=== PATIENT | male | born 1970 | race Caucasian/White ===

== ENCOUNTER 2022-07-30 21:06 | Emergency (ER) | payer MEDICAID, OTHER ==
[~2022-07-30] VITALS: Ht 175.3 cm; Wt 65.9 kg
[2022-07-30] MEDS ORDERED: KETOROLAC TROMETHAMINE 30 MG/ML VIAL IM ONE (21:30)
[2022-07-30] MEDS ORDERED: ACETAMINOPHEN 500 MG TABLET PO ONE (21:30)
[2022-07-30] MEDS ORDERED: ONDANSETRON HCL 4 MG TABLET PO ONE (21:30)
[2022-07-30 21:37] LABS: BASOPHILS % (AUTO) 0.4 % (0.0-2.0); EOSINOPHILS % (AUTO) 0.6 % (1.0-6.0); HEMATOCRIT 36.3 % (41-53); LYMPHOCYTES # (AUTO) 1.5 K/uL (1.0-4.8); LYMPHOCYTES % (AUTO) 15.6 % (22.0-44.0); MEAN CORPUSCULAR HEMOGLOBIN 21.5 pg (26.0-34.0); MEAN CORPUSCULAR HGB CONC 30.4 G/dL (31.0-37.0); MEAN CORPUSCULAR VOLUME 71 fL (80-100); MONOCYTES # (AUTO) 0.7 K/uL (0.1-1.0); MONOCYTES % (AUTO) 7.3 % (2.0-9.0); NEUTROPHILS # (AUTO) 7.5 K/uL (1.8-7.7); NEUTROPHILS % (AUTO) 76.1 % (40.0-70.0); PLATELET COUNT (AUTO) 371 K/uL (150-450); RED BLOOD CELL COUNT(AUTO) 5.13 MIL/uL (4.50-5.90); RED CELL DISTRIBUTION WIDTH 18.3 % (11.5-14.5)
[2022-07-30 21:52] LABS: ANION GAP 10 mmol/L (8-16); CALCIUM, TOTAL 8.7 mg/dL (8.8-10.5); CARBON DIOXIDE 27 mmol/L (22-29); CHLORIDE 101 mmol/L (98-107); GLOMERULAR FILTR. RATE CALC > 60 mL/min (>60); GLUCOSE,RANDOM 117 mg/dL (70-110); POTASSIUM 3.8 mmol/L (3.5-5.1); SODIUM SERUM 138 mmol/L (136-145)
[2022-07-30 21:57] LABS: ALANINE AMINOTRANSFERASE 11 U/L (12-78); ALBUMIN 3.3 g/dL (3.4-5.0); ALKALINE PHOSPHATASE 95 U/L (46-116); ASPARTATE AMINOTRANSFERASE 17 U/L (15-37); BILIRUBIN,TOTAL 0.5 mg/dL (0.1-1.0); TOTAL PROTEIN, SERUM 7.3 g/dL (6.4-8.2)
[2022-07-30 22:42] LABS: APPEARANCE,URINE CLEAR (CLEAR); BILIRUBIN,URINE NEGATIVE (NEGATIVE); GLUCOSE, URINE (UA) NEGATIVE (NEGATIVE); KETONES,URINE NEGATIVE (NEGATIVE); LEUKOCYTE ESTERASE ,URINE MODERATE (NEGATIVE); NITRATE,URINE NEGATIVE (NEGATIVE); OCCULT BLOOD,URINE NEGATIVE (NEGATIVE); PH,URINE 6.5 (5.0-8.0); PROTEIN,URINE 30-70 mg/dL (NEGATIVE); SPECIFIC GRAVITIY, URINE 1.023 (1.003-1.030); UROBILINOGEN,URINE <=1.0 mg/dL (<=1.0)
[2022-07-30] MEDS ORDERED: CefTRIAXone SODIUM 1 GM/VIAL IM ONE (22:45)
[2022-07-30] MEDS ORDERED: DOXYCYCLINE HYCLATE 100 MG TABLET PO ONE (22:45)
[2022-07-30] MEDS ORDERED: PENICILLIN G BENZATHINE LA 2,400,000 UNITS/4 ML SYRINGE IM ONE (22:45)
[2022-07-30] MEDS ORDERED: LIDOCAINE/PF 1% 2 ML VIAL IM ONE (22:45)
[2022-07-30 22:50] LABS: BACTERIA,URINE None Seen /HPF (None Seen); RBC,URINE None Seen /HPF (0-2); SQUAMOUS EPITHELIAL CELL,UR None Seen /LPF (None Seen)
[2022-07-30 23:20] VITALS: BP 138/79
[2022-07-31] MEDS ORDERED: DOXY-354 PO (00:26)
[2022-07-31] MEDS ORDERED: IBUP-1492 PO (00:26)
[2022-07-31] MEDS ORDERED: CEPH-558 PO (00:26)
== END 2022-07-31 00:41 | disposition home or self-care (01) ==
LOC: EMS 21:07
DX: A53.9 Syphilis, unspecified (principal); N45.2 Orchitis
CPT/HCPCS: 99285; 86780; 86592; 86593; 80053; 81001; 85025; 36415; 87086; 87186; 76870; 87491; 87591; 96372; J0561; J0696; J1885; J3490; Q0162

== ENCOUNTER 2022-11-22 22:04 | Emergency (ER) | payer OTHER ==
[~2022-11-22] VITALS: Ht 175.3 cm; Wt 66.0 kg
[~2022-11-22 22:04] MED LIST: CEPH-558 PO; DOXY-354 PO; IBUP-1492 PO
[2022-11-22 23:12] LABS: APPEARANCE,URINE TURBID (CLEAR); BILIRUBIN,URINE NEGATIVE (NEGATIVE); COLOR,URINE RED (YELLOW); GLUCOSE, URINE (UA) NEGATIVE (NEGATIVE); KETONES,URINE NEGATIVE (NEGATIVE); LEUKOCYTE ESTERASE ,URINE LARGE (NEGATIVE); NITRATE,URINE NEGATIVE (NEGATIVE); OCCULT BLOOD,URINE LARGE (NEGATIVE); PROTEIN,URINE 300-600,SEE CONFIRM mg/dL (NEGATIVE); SPECIFIC GRAVITIY, URINE 1.021 (1.003-1.030); UROBILINOGEN,URINE <=1.0 mg/dL (<=1.0)
[2022-11-22 23:24] LABS: SULFOSALICYLIC ACID,URINE 4+ (Negative)
[2022-11-22 23:26] LABS: RBC,URINE Full Field /HPF (0-2)
[2022-11-22 23:29] LABS: BACTERIA,URINE Moderate /HPF (None Seen); WBC,URINE 51-100 /HPF (0-5)
[2022-11-22 23:53] VITALS: BP 136/70; PULSE 92; RESP 16; TEMP 98.4
[2022-11-23] MEDS ORDERED: LIDOCAINE/PF 1% 2 ML VIAL IM ONE (00:30)
[2022-11-23] MEDS ORDERED: CefTRIAXone SODIUM 1 GM/VIAL IM ONE (00:30)
[2022-11-23] MEDS ORDERED: DOXYCYCLINE HYCLATE 100 MG TABLET PO ONE (00:30)
[2022-11-23] MEDS ORDERED: DOXY-354 PO (00:42)
== END 2022-11-23 01:14 | disposition home or self-care (01) ==
LOC: EMS 22:05
DX: N39.0 Urinary tract infection, site not specified (principal); Z98.890 Other specified postprocedural states
CPT/HCPCS: 99284; 81001; 87086; 87186; 87491; 87591; 81002; 74018; 96372; J0696; J3490

== ENCOUNTER 2025-02-24 17:54 | Emergency (ER) | payer OTHER ==
[~2025-02-24] VITALS: Ht 175.3 cm; Wt 65.9 kg
[2025-02-24 18:04] VITALS: TEMP 99
[2025-02-24] MEDS: CEPHALEXIN MONOHYDRATE 500 MG CAPSULE PO ONE (21:10)
[2025-02-24] MEDS: LIDOCAINE 1% 10 ML VIAL SQ ONE (21:10)
[2025-02-24] MEDS: DOXYCYCLINE HYCLATE 100 MG TABLET PO ONE (21:10)
[2025-02-24] MEDS ORDERED: IBUP-1554 PO (21:13)
[2025-02-24] MEDS: ACETAMINOPHEN/CODEINE 300-30 MG TABLET PO ONE (21:18)
[2025-02-24 21:23] VITALS: BP 135/91; PULSE 91; RESP 18; O2SAT 99
[2025-02-24] MEDS ORDERED: DOXY-354 PO (21:38)
[2025-02-24] MEDS ORDERED: CEPH-558 PO (21:38)
== END 2025-02-24 21:47 | disposition home or self-care (01) ==
LOC: EMS 17:54
DX: L03.116 Cellulitis of left lower limb (principal); L02.416 Cutaneous abscess of left lower limb; I10 Essential (primary) hypertension; Z98.890 Other specified postprocedural states; Z79.899 Other long term (current) drug therapy
CPT/HCPCS: 99284; 10060; J3490